=== PATIENT | female | born 1930 | race Caucasian/White ===

== ENCOUNTER 2018-04-28 08:34 | Outpatient (CLI) | payer MEDICARE, BC ==
--- NOTE | 2018-04-28 12:52 | NM ---
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 Sclerotic foci wi thin the thoracic spine with suspected interval growth from comparison CTs. RADIOPHARMACEUTICAL: Technetium 99m MDP 31.10 millicuries IV. FINDINGS: No suspicious radiotracer activity is seen involving the region of the sclerotic focus seen on an out side CT of the chest, performed at [facility], within the mid to upper thoracic spine. T here is degenerative activity of the lumbar spine, the sternoclavicular joints, the AC joints, the kn ees, and the feet. IMPRESSION: No suspicious activity seen within the region of the sclerotic focus of T6. This is likely reflectiv e of a bone island. POS: YOVANY
== END 2018-04-28 08:35 | disposition home or self-care (01) ==
LOC: NM 08:34
PROVIDERS: ATTEND Internal Medicine
DX: I65.09 Occlusion and stenosis of unspecified vertebral artery (principal)
CPT/HCPCS: 78306; A9503; A9500